=== PATIENT | male | born 1995 | race Caucasian/White ===

== ENCOUNTER 2016-11-29 02:31 | Emergency (ER) | payer BC, OTHER ==
[~2016-11-29] VITALS: Ht 172.7 cm; Wt 81.6 kg
[2016-11-29 02:31] VITALS: TEMP 36.1; O2SAT 96; Ht 172.7 cm; Wt 81.6 kg
[2016-11-29] MEDS ORDERED: PROMETHAZINE HCL INJ 25 MG/ML 1 ML VIAL IM STA (02:37)
[2016-11-29 04:19] LABS: BASO % 0.1 %; BASO ABS # 0.01 K/uL (0-0.2); COMPLETE YES; EOS % 1.1 %; HEMATOCRIT 40.8 % (42-52); IG% 0.3 %; LYMPH % 22.8 %; LYMPH ABS # 1.59 K/uL (1.2-3.4); MEAN CORPUSCULAR HEMOGLOBIN 31.1 pg (25-34); MEAN CORPUSCULAR HGB CONC 35.8 g/dl (32-36); MEAN PLATELET VOLUME 8.6 fL (7.4-10.4); MONO % 3.9 %; NEUT % 71.8 %; PLATELET COUNT 262 K/uL (130-400); RED BLOOD COUNT 4.69 M/uL (4.7-6.1); WHITE BLOOD COUNT 6.97 K/uL (4.8-10.8)
[2016-11-29 04:31] LABS: INR 1.1 (0.9-1.1); PARTIAL THROMBOPLASTIN RATIO 1.1; PROTHROMBIN TIME (PATIENT) 11.5 SECONDS (9.0-12.0)
[2016-11-29 04:33] VITALS: BP 106/59; PULSE 79; O2SAT 93
--- NOTE | 2016-11-29 04:36 | EMERGENCY ROOM VISIT NOTE ---
ED Visit Note First contact with patient: 02:33 I saw this patient in conjunction with Keven Hussein PA-C. I agree with his decision-making and treatment plan. The patient has a punctate hemorrhage in the left temporal lobe. I discussed the case with trauma surgery from [place]-Dr. Enrique. She has accepted the patient in transfer as a level I trauma.
[2016-11-29 04:38] LABS: BUN/CREATININE RATIO 10.8 (10-20); CALCIUM 8.3 mg/dl (8.5-10.1); CREATININE 0.9 mg/dl (0.60-1.40); POTASSIUM 3.3 mmol/L (3.5-5.1)
[2016-11-29] MEDS ORDERED: LORAZEPAM 2 MG/ML 1 ML VIAL IV STA (05:05)
--- NOTE | 2016-11-29 07:39 | DIAGNOSTIC IMAGING REPORT ---
CT SCAN OF THE CERVICAL SPINE CLINICAL HISTORY: Trauma. Fall. Intoxication. COMPARISON STUDY: No priors. TECHNIQUE: CT scan of the cervical spine is performed from the skull base to the upper thoracic spine. Images are reviewed in the axial, sagittal, and coronal planes. IV contrast was not administered for this examination. CT DOSE: 302.75 mGy.cm FINDINGS: Skeletal structures: The skeletal structures are well mineralized. There is no evidence of fracture or subluxation involving the cervical spine. Vertebral body height and alignment are maintained. There is straightening of cervical lordosis. The odontoid process and lateral masses are intact. The atlantoaxial articulation is preserved. The spinous processes appear intact. Intervertebral discs: The disc spaces are well maintained. Central canal: Widely patent. Soft tissues: The prevertebral and paraspinous soft tissues are within normal limits. Calvarium: The visualized calvarium at the skull base appears intact. Brain parenchyma: Partially visualized brain parenchyma the skull base is within normal limits. Sinuses and mastoids: A retention cyst is noted in the left maxillary antrum. Mucosal thickening is present within the maxillary antra bilaterally. The mastoid air cells are well pneumatized. Lung apices: Clear as visualized. IMPRESSION: There is no evidence of fracture or subluxation involving the cervical spine. Electronically signed by: Saul Kearney M.D. 11/29/2016 7:37 AM
--- NOTE | 2016-11-29 07:55 | DIAGNOSTIC IMAGING REPORT ---
CT SCAN OF THE BRAIN WITHOUT IV CONTRAST CLINICAL HISTORY: Fall. Intoxication. Head injury. COMPARISON STUDY: No priors. TECHNIQUE: Unenhanced axial CT scan of the brain is performed from the vertex to the skull base. Automated dose control exposure was utilized. CT DOSE: 1228.53 mGy.cm FINDINGS: Brain parenchyma: There is questionable trace hemorrhagic contusion in the anterior left temporal lobe ingested axial image #10. No additional findings are concerning for hemorrhage. There is no mass effect or evidence of acute territorial ischemia by CT criteria. Bentley-white matter is preserved. No extra-axial fluid collection is seen. Ventricles, sulci, cisterns: Normal in configuration. Intracranial vasculature: The visualized intracranial vasculature at the skull base is normal in appearance. Calvarium: There is no depressed calvarial fracture. There are bilateral comminuted nasal bone fractures with overlying soft tissue edema. Soft tissues: There is a left temporoparietal scalp contusion/hematoma. Sinuses and mastoids: Mild mucosal thickening seen in the right frontal and ethmoid sinuses. The mastoid air cells are well pneumatized. Orbits: The bony orbits are grossly intact. IMPRESSION: 1. There is questionable trace hemorrhagic contusion versus artifact in the anterior left temporal lobe. Consider short-term interval follow-up for reassessment. 2. No additional foci of hemorrhage are suspected. There is no mass effect or evidence of acute territorial ischemia. 3. There are bilateral comminuted nasal bone fractures with overlying soft tissue edema. 4. Left temporoparietal scalp contusion/hematoma. No depressed calvarial fracture is seen. Electronically signed by: Saul Kearney M.D. 11/29/2016 7:54 AM
--- NOTE | 2016-11-29 08:01 | EMERGENCY ROOM VISIT NOTE ---
History First contact with patient: 02:33 Chief Complaint: ALCOHOL OVERDOSE Stated Complaint: ALCOHOL OVERDOSE Nursing Triage Summary: Pt was with friends drinking about 1/2 a fifth of [place]. Pt and friends walking on campus and pt fell and hit head on rock. Left side of head has bump. Friends called police. History of Present Illness The patient is a 20 year old male who presents to the Emergency Room for evaluation of alcohol intoxication. Evidently the patient lives in [place] and is in the [place] area drinking for the . He was with friends, who estimate the patient drank half a fifth of [place] Mor[place]. The patient and his friends were walking on campus at [facility], when the patient lost balance, fell, and struck his head on a rock. He does have a hematoma on the left side of his head. The patient had vomiting prehospital, and the friends contacted police. Police then contacted EMS, who bring the patient to the ER for evaluation. On arrival the patient appears grossly intoxicated and is vomiting. He is not able to answer questions appropriately and much of the history is provided by EMS and police. Review of Systems More than 10 systems were reviewed to the best of our ability Past Medical/Surgical History Unknown chronic medical disease Family History Unknown family history Social History Smoking Status: Unknown if Ever Smoked Alcohol Use: heavy Current/Historical Medications Unable to Obtain Active Prescriptions or Reported Meds Physical Exam Vital Signs Date Time Temp Pulse Resp B/P Pulse Ox O2 Delivery O2 Flow Rate FiO2 11/29/16 04:33 79 20 106/59 93 11/29/16 04:27 72 16 114/64 94 Room Air 11/29/16 03:22 71 18 117/87 93 Room Air 11/29/16 03:03 78 11/29/16 02:31 Room Air 11/29/16 02:31 96 Room Air 11/29/16 02:31 36.1 78 20 130/90 93 Room Air Pain Rating (0-10): 0 Physical Exam VITALS: Vitals are noted on the nurse's note and reviewed by myself. Vital signs stable. GENERAL: Grossly intoxicated white male who is not overly cooperative with the examination. He does arouse to painful stimuli, but does not answer questions. He is vomiting at times through the examination. HEAD: Notable left-sided scalp hematoma measuring approximately 3 x 2 cm. No taveras sign or raccoon eyes. EARS: External ear normal. External auditory canals clear, tympanic membranes pearly whitney without erythema or effusion bilaterally. EYES: Pupils equal round and reactive to light and accommodation. Conjunctivae without injection, sclerae without icterus. Extraocular movements intact. No hyphema. MOUTH: Mucous membranes moist. Tonsils are not enlarged. Pharynx with no obvious blood. Airway is patent. NECK: Supple without nuchal rigidity. No lymphadenopathy. No thyromegaly. Cervical spine is nontender. HEART: Regular rate and rhythm without murmurs gallops or rubs. LUNGS: Clear to auscultation bilaterally without wheezes, rales or rhonchi. No retractions or accessory muscle use. ABDOMEN: Positive normal bowel sounds x 4. Soft without appreciable tenderness. MUSCULOSKELETAL: No muscle atrophy, erythema, or edema noted. Full spontaneous range of motion of arms and legs. No obvious deformity or lacerations. NEURO: Patient was not alert or oriented. He is unable to answer questions appropriately. He does arouse to painful stimuli. GCS is 8 ([id number]) Medical Decision & Procedures ER Provider Diagnostic Interpretation: Preliminary Findings Only See Final Report For Complete Findings CT HEAD: Extracranial soft tissue hematoma and laceration. No acute skull fractures. Bilateral comminuted nasal bone fractures. Motion and streak artifacts. Suspected petechial hemorrhage in the anterior left temporal lobe on image 10 of series 4. No mass effect or midline shift. CT SCAN OF THE CERVICAL SPINE CLINICAL HISTORY: Trauma. Fall. Intoxication. COMPARISON STUDY: No priors. TECHNIQUE: CT scan of the cervical spine is performed from the skull base to the upper thoracic spine. Images are reviewed in the axial, sagittal, and coronal planes. IV contrast was not administered for this examination. CT DOSE: 302.75 mGy.cm FINDINGS: Skeletal structures: The skeletal structures are well mineralized. There is no evidence of fracture or subluxation involving the cervical spine. Vertebral body height and alignment are maintained. There is straightening of cervical lordosis. The odontoid process and lateral masses are intact. The atlantoaxial articulation is preserved. The spinous processes appear intact. Intervertebral discs: The disc spaces are well maintained. Central canal: Widely patent. Soft tissues: The prevertebral and paraspinous soft tissues are within normal limits. Calvarium: The visualized calvarium at the skull base appears intact. Brain parenchyma: Partially visualized brain parenchyma the skull base is within normal limits. Sinuses and mastoids: A retention cyst is noted in the left maxillary antrum. Mucosal thickening is present within the maxillary antra bilaterally. The mastoid air cells are well pneumatized. Lung apices: Clear as visualized. IMPRESSION: There is no evidence of fracture or subluxation involving the cervical spine. Laboratory Results 11/29/16 04:09 Red Blood Count 4.69, Mean Corpuscular Volume 87.0, Mean Corpuscular Hemoglobin 31.1, Mean Corpuscular Hemoglobin Concent 35.8, Mean Platelet Volume 8.6, Neutrophils (%) (Auto) 71.8, Lymphocytes (%) (Auto) 22.8, Monocytes (%) (Auto) 3.9, Eosinophils (%) (Auto) 1.1, Basophils (%) (Auto) 0.1, Neutrophils # (Auto) 5.00, Lymphocytes # (Auto) 1.59, Monocytes # (Auto) 0.27, Eosinophils # (Auto) 0.08, Basophils # (Auto) 0.01 11/29/16 04:09 Test 11/29/16 04:09 White Blood Count 6.97 K/uL (4.8-10.8) Red Blood Count 4.69 M/uL (4.7-6.1) Hemoglobin 14.6 g/dL (14.0-18.0) Hematocrit 40.8 % (42-52) Mean Corpuscular Volume 87.0 fL (80-100) Mean Corpuscular Hemoglobin 31.1 pg (25-34) Mean Corpuscular Hemoglobin Concent 35.8 g/dl (32-36) Platelet Count 262 K/uL (130-400) Mean Platelet Volume 8.6 fL (7.4-10.4) Neutrophils (%) (Auto) 71.8 % Lymphocytes (%) (Auto) 22.8 % Monocytes (%) (Auto) 3.9 % Eosinophils (%) (Auto) 1.1 % Basophils (%) (Auto) 0.1 % Neutrophils # (Auto) 5.00 K/uL (1.4-6.5) Lymphocytes # (Auto) 1.59 K/uL (1.2-3.4) Monocytes # (Auto) 0.27 K/uL (0.11-0.59) Eosinophils # (Auto) 0.08 K/uL (0-0.5) Basophils # (Auto) 0.01 K/uL (0-0.2) RDW Standard Deviation 42.5 fL (36.4-46.3) RDW Coefficient of Variation 13.3 % (11.5-14.5) Immature Granulocyte % (Auto) 0.3 % Immature Granulocyte # (Auto) 0.02 K/uL (0.00-0.02) Prothrombin Time 11.5 SECONDS (9.0-12.0) Prothromb Time International Ratio 1.1 (0.9-1.1) Activated Partial Thromboplast Time 28.2 SECONDS (21.0-31.0) Partial Thromboplastin Ratio 1.1 Anion Gap 10.0 mmol/L (3-11) Est Creatinine Clear Calc Drug Dose 127.7 ml/min Estimated GFR () 143.0 Estimated GFR (Non- 123.4 BUN/Creatinine Ratio 10.8 (10-20) Calcium Level 8.3 mg/dl (8.5-10.1) Ethyl Alcohol mg/dL 266.0 mg/dl (0-3) Medications Administered Medications (Trade) Dose Ordered Sig/Arlyn Route Start Time Stop Time Status Last Admin Dose Admin Promethazine HCl (Phenergan Inj) 25 mg NOW STAT IM 11/29/16 02:37 11/29/16 02:39 DC 11/29/16 03:20 25 MG Lorazepam (Ativan Inj) 2 mg NOW STAT IV 11/29/16 05:05 11/29/16 05:06 DC 11/29/16 05:05 2 MG ED Course Physical exam and history were performed. Nursing notes and EMR were reviewed. Patient appears to have been drinking alcohol this evening. He suffered a fall and head injury. He is vomiting on arrival, and was given 25 mg IM Phenergan for this. The patient was unable to answer questions regarding this evening. Blood draw was taken, and patient was placed in aspiration precautions. He is placed on a trade clerk. Because he does have an injury to his head he was placed in a cervical spine collar and CT scan was performed of the head. The case was discussed with my attending physician, Dr. Prado, who also independently evaluated the patient and remained very closely involved in patient care and decision making. The patient's CT scan of the head was read by Amy, and was concerning for a temporal intracranial bleed. A CT scan of the neck does not show acute findings. We were unable to immediately contact patient and family, however we eventually were able to speak with his mother, Valarie, at [phone]. The family does live in [facility], and understand the patient will need to be transferred as we do not have trauma services or neurosurgical capacity this facility. Verbal consent was provided by the mother as the patient himself was not able to consent. Dr Prado was able to discuss the case with [facility], and they do accept the patient in transfer. Please see her dictation regarding specifics of this. We initially attempted to arrange [facility] transfer, however because of weather this was not possible. We were able to transfer the patient via ground ALS with our medics within a very short interval. Appropriate paperwork was completed. Prior to discharge the patient did have some increased agitation, and did require 2 mg IV Ativan to remain calm. The patient otherwise remained in stable condition throughout his remaining Emergency Department stay. He was transferred to [place] via ground. We did keep the family up-to-date on the patient's status throughout his care. The chart was completed utilizing [email or web address] Speech Voice Recognition Software. Grammatical errors, random word insertions, pronoun errors, and incomplete sentences are an occasional consequence of this system due to software limitations, ambient noise, and hardware issues. Any formal questions or concerns about the content, text, or information contained within the body of this dictation should be directly addressed to the provider for clarification. . Medical Decision Differential diagnosis: Etiologies such as metabolic, infection, hypoglycemia, electrolyte abnormalities , cardiac sources, intracerebral event, toxicologic, neurologic, as well as others were entertained. Impression Primary Impression: Intracranial bleed Additional Impressions: Head injury, Alcohol intoxication Critical Care I have personally spent greater than 60 minutes of critical care time in the direct management of this patient. This includes bedside care, interpretation of diagnostic studies, and testing, discussion with consultants, patient, and family members, and other required patient management activities. This 60 minutes is in excess of all separately billable procedures. Departure Information Dispostion Transfer Acute Care Facility Condition FAIR Prescriptions Unable to Obtain Active Prescriptions or Reported Meds Referrals No Doctor, Assigned (PCP) Forms HOME CARE DOCUMENTATION FORM, IMPORTANT VISIT INFORMATION Patient Instructions A Signature Page, My [facility]
== END 2016-11-29 04:34 | disposition short-term general hospital (02) ==
LOC: C.EDB 02:32
DX: S06.300A Unspecified focal traumatic brain injury without loss of consciousness, initial encounter (principal); S02.2XXA Fracture of nasal bones, initial encounter for closed fracture; F10.129 Alcohol abuse with intoxication, unspecified; Y90.8 Blood alcohol level of 240 mg/100 ml or more; F17.200 Nicotine dependence, unspecified, uncomplicated; W01.198A Fall on same level from slipping, tripping and stumbling with subsequent striking against other object, initial encounter; Y93.01 Activity, walking, marching and hiking; Y92.214 College as the place of occurrence of the external cause; Y99.8 Other external cause status